=== PATIENT | male | born 1960 | race Caucasian/White ===

== ENCOUNTER 2019-05-22 12:07 | Emergency (ER) | payer OTHER ==
[~2019-05-22] VITALS: Ht 182.9 cm; Wt 97.1 kg
[2019-05-22] MEDS ORDERED: LOSARTAN POTAS100 MG (12:32)
[2019-05-22] MEDS ORDERED: NORVASC2.5 MG (12:34)
[2019-05-22] MEDS ORDERED: HYZAAR 50-12.51 EACH (12:34)
[2019-05-22] MEDS ORDERED: VYTORIN 10-401 EACH (12:35)
[2019-05-22] MEDS ORDERED: ASA325 MG (12:35)
[2019-05-22] MEDS ORDERED: TOPROL XL100 M1 (12:35)
[2019-05-22] MEDS ORDERED: FOLIC ACID0.8 MG (12:36)
[2019-05-22] MEDS ORDERED: OMEGA 3 1,0001 EACH (12:36)
== END 2019-05-22 17:39 | disposition home or self-care (01) ==
LOC: ER 12:07
DX: S00.83XA Contusion of other part of head, initial encounter (principal); V49.9XXA Car occupant (driver) (passenger) injured in unspecified traffic accident, initial encounter; Y93.89 Activity, other specified; Y92.488 Other paved roadways as the place of occurrence of the external cause; Y99.8 Other external cause status

== ENCOUNTER 2021-09-18 09:41 | Outpatient (CLI) | payer OTHER ==
[~2021-09-18 09:41] MED LIST changes: -METFORMIN HCL500 M3 PO; -NEURONTIN800 MG PO; -TOPROL XL50 M1 PO
== END 2021-09-18 09:48 | disposition home or self-care (01) ==
LOC: NUCLEAR 09:41
DX: I73.9 Peripheral vascular disease, unspecified (principal)

== ENCOUNTER → 2021-09-18 | Outpatient (CLI) | payer OTHER ==
[~2021-09-18] MED LIST: ASA325 MG; FOLIC ACID0.8 MG; HYZAAR 50-12.51 EACH; LOSARTAN POTAS100 MG; METFORMIN HCL500 M3 PO; NEURONTIN800 MG PO; NORVASC2.5 MG; OMEGA 3 1,0001 EACH; TOPROL XL100 M1; TOPROL XL50 M1 PO; VYTORIN 10-401 EACH
== END | disposition home or self-care (01) ==
LOC: EKG 12:52 → LAB 12:52
PROVIDERS: ATTEND Urology
DX: I10 Essential (primary) hypertension (principal); E11.9 Type 2 diabetes mellitus without complications

== ENCOUNTER 2021-09-24 07:17 | Outpatient (CLI) | payer OTHER ==
[~2021-09-24 07:17] MED LIST changes: -METFORMIN HCL500 M3 PO; -NEURONTIN800 MG PO; -TOPROL XL50 M1 PO
[2021-09-24] MEDS ORDERED: NEURONTIN800 MG PO (16:16)
[2021-09-24] MEDS ORDERED: METFORMIN HCL500 M3 PO (16:17)
[2021-09-24] MEDS ORDERED: TOPROL XL50 M1 PO (16:17)
== END 2021-09-24 07:18 | disposition home or self-care (01) ==
LOC: NUCLEAR 07:17
DX: I20.8 Other forms of angina pectoris (principal); I87.2 Venous insufficiency (chronic) (peripheral); E11.9 Type 2 diabetes mellitus without complications; E78.2 Mixed hyperlipidemia
CPT/HCPCS: 78452; 93017; 93970; A9500; J0153

== ENCOUNTER → 2021-09-24 | Outpatient (CLI) | payer OTHER ==
[~2021-09-24] MED LIST changes: +METFORMIN HCL500 M3 PO; +NEURONTIN800 MG PO; +TOPROL XL50 M1 PO
== END | disposition home or self-care (01) ==
LOC: SONOGRAMA 14:06
PROVIDERS: ATTEND Urology
DX: N43.40 Spermatocele of epididymis, unspecified (principal); N43.2 Other hydrocele

== ENCOUNTER 2021-09-26 06:12 | Day surgery (SDC) | payer OTHER ==
[~2021-09-26 06:12] MED LIST changes: +METFORMIN HCL500 M3 PO; +NEURONTIN800 MG PO; +TOPROL XL50 M1 PO
== END 2021-09-26 18:30 | disposition home or self-care (01) ==
LOC: CIR.AMB 06:12
PROVIDERS: ATTEND Urology
DX: N43.2 Other hydrocele (principal); N43.41 Spermatocele of epididymis, single; Z20.822 Contact with and (suspected) exposure to COVID-19

== ENCOUNTER 2022-06-26 10:46 | Outpatient (CLI) | payer OTHER | END 2022-06-26 10:51 | disposition home or self-care (01) | LOC: NUCLEAR 10:46 | PROVIDERS: ATTEND Neurological Surgery | DX: I74.09 Other arterial embolism and thrombosis of abdominal aorta (principal) ==

== ENCOUNTER 2023-04-17 08:32 | Outpatient (CLI) | payer OTHER | END 2023-04-17 08:51 | disposition home or self-care (01) | LOC: NUCLEAR 08:32 | PROVIDERS: ATTEND Family Medicine | DX: I82.413 Acute embolism and thrombosis of femoral vein, bilateral (principal); I82.90 Acute embolism and thrombosis of unspecified vein; R60.9 Edema, unspecified ==

== ENCOUNTER → 2023-04-18 08:39 | Outpatient (CLI) | payer OTHER | END | disposition home or self-care (01) | LOC: NUCLEAR 08:39 | PROVIDERS: ATTEND Family Medicine | DX: I82.413 Acute embolism and thrombosis of femoral vein, bilateral (principal); I82.90 Acute embolism and thrombosis of unspecified vein; R60.9 Edema, unspecified ==